=== PATIENT | male | born 1965 | race American Indian/Alaskan Native ===

== ENCOUNTER 2017-01-28 09:05 | Day surgery (SDC) | payer OTHER ==
[~2017-01-28 09:05] MED LIST: ADRENALIN ONE; ANCEF/STERILE WATER 2 GM/20 ML IV NR; MARCAINE 0.25% INFILTRATI ONE; XYLOCAINE 1% 20 mL ONE
--- NOTE | 2017-01-28 11:22 | Anesthesia Day of Surgery ---
Anesthesia Day of Surgery - Day of Surgery Patient Examined: Yes Patient H&P Reviewed: Yes Patient is NPO: Yes
--- NOTE | 2017-01-28 11:22 | Anesthesia Consultation ---
Anesthesia Consult and Med Hx Date of service: 01/28/17 - Airway Anesthetic Teeth Evaluation: Good ROM Head & Neck: Adequate Mental/Hyoid Distance: Adequate Mallampati Class: Class II Intubation Access Assessment: Good - Pulmonary Exam CTA: Yes - Cardiac Exam Cardiac Exam: No Murmur - Pre-Operative Health Status ASA Pre-Surgery Classification: ASA2 Proposed Anesthetic Plan: General - Pulmonary Hx Smoking: No Hx Sleep Apnea: No (KEY PRE SCREEN HIGH RISK) - Cardiovascular System Hx Hypertension: Yes (X 1 YR) - Central Nervous System Hx Back Pain: Yes (NECK AND BACK PAIN) - Other Systems Hx Cancer: No
[2017-01-28] MEDS ORDERED: MARCAINE 0.25% INFILTRATI ONE (11:55)
[2017-01-28] MEDS ORDERED: XYLOCAINE 1% 20 mL INFILTRATI ONE (11:55)
[2017-01-28] MEDS ORDERED: VERSED IV NR (12:00)
[2017-01-28] MEDS ORDERED: PEPCID PO NR (12:00)
[2017-01-28] MEDS ORDERED: LACTATED RINGERS 1,000 ML IV SCH (12:00)
[2017-01-28] MEDS ORDERED: ADRENALIN IV ONE (12:11)
[2017-01-28] MEDS ORDERED: DECADRON ONE (12:36)
[2017-01-28] MEDS ORDERED: ZOFRAN ONE (12:36)
--- NOTE | 2017-01-28 12:37 | Short Stay Summary ---
Short Stay Documentation Date of service: 01/28/17 - History H&P: obtained from office - Allergies and Medications Current Medications: Allergies No Known Allergies Allergy (Verified 09/20/14 17:14) Home Medications Medication Instructions Recorded Confirmed Last Taken Type Gabapentin [Neurontin] 300 mg PO Q8HR 09/20/14 01/28/17 01/26/17 History Hydrochlorothiazide [HCTZ] 25 mg PO QDAY 09/20/14 01/28/17 01/28/17 07:00 History QUEtiapine [SEROquel] 25 mg PO BID 09/20/14 01/28/17 01/26/17 History Sertraline [Zoloft] 25 mg PO QDAY 09/20/14 01/28/17 01/26/17 History clonazePAM [KlonoPIN] 1 mg PO BID PRN 09/20/14 01/28/17 01/28/17 07:00 History AtorvaSTATin [Lipitor] 20 mg PO QHS 01/18/17 01/28/17 01/26/17 History Ibuprofen [Motrin] 800 mg PO Q8HR PRN 01/18/17 01/28/17 01/18/17 History Active Medications Famotidine (Pepcid) 20 mg PO PREOP NR Stop: 01/28/17 23:00 Last Admin: 01/28/17 11:42 Dose: 20 mg Lactated Ringer's (Lactated Ringers) 1,000 mls @ 100 mls/hr IV DIRECT JOSE Last Admin: 01/28/17 11:42 Dose: 100 mls/hr Midazolam HCl (Versed) 2 mg IV PREOP NR Stop: 01/28/17 23:59 Last Admin: 01/28/17 11:44 Dose: 2 mg - Brief post op/procedure progress note Date of procedure: 01/28/17 Pre-op diagnosis: persistetn right knee pain with mechanical symptoms lateral meniscus tear Post-op diagnosis: same Procedure: right knee arthroscopy partial lateral meniscectomy Anesthesia: GETA Findings: as above Surgeon: KIERAN GILBERT Manager Clinical: MENDEL OSHEA III Estimated blood loss: minimal Pathology: none Condition: stable - Hospital course Hospital course: no perioperative complications - Disposition Condition at discharge: Good Disposition: DC-01 TO HOME OR SELFCARE Short Stay Discharge Plan Follow up with: RHEA CARNEY MD [Primary Care Provider] - 7 Days
[2017-01-28] MEDS ORDERED: SUBLIMAZE ONE (12:40)
[2017-01-28] MEDS ORDERED: XYLOCAINE MPF 2% ONE (12:40)
[2017-01-28] MEDS ORDERED: DIPRIVAN 10 MG/ML IV ONE (12:40)
[2017-01-28] MEDS: DILAUDID IV PRN ×2 (13:00→13:10)
[2017-01-28] MEDS ORDERED: DILAUDID ONE (13:12)
[2017-01-28] MEDS ORDERED: PERCOCET 5/325 PO ONE (14:00)
[2017-01-28 14:01] VITALS: BP 132/91
--- NOTE | 2017-01-28 16:53 | Operative Report ---
PREOPERATIVE DIAGNOSIS: Persistent right knee pain, lateral meniscus tear repair. POSTOPERATIVE DIAGNOSIS: Persistent right knee pain, mechanical symptoms, large complex tear located within the posterior horn of the lateral meniscus. OPERATIVE PROCEDURE: Right knee arthroscopy, partial lateral meniscectomy. SURGEON: Tam Ragland M.D. MOLD FILLER AND DRAINER: Hesham Altamirano M.D. ANTIBIOTICS: Ancef 2 g IV within 1 hour of skin incision. DEEP VENOUS THROMBOSIS PROPHYLAXIS: Open toe thigh high compression stockings and SCD pumps to the nonoperative left lower extremity. OPERATIVE COMPLICATIONS: None. INDICATIONS: A 51-year-old male who has had persistent progressive worsening right knee pain with mechanical symptoms that is markedly limiting his day-to-day activities. MRI scan was performed, which was positive for a lateral meniscus tear. The patient's MRI findings and diagnosis were discussed at length. After making sure, the patient understood the diagnosis and all questions answered, we then discussed treatment alternatives of surgical and nonsurgical including the risks and benefits of both. After a long lengthy discussion, the patient opted to proceed with operative intervention. This will entail a right knee arthroscopy, partial lateral meniscectomy and surgery as indicated. The risks of which were discussed to include but not exclusive of infection, blood loss, nerve damage, loss of range of motion, persistent pain. Again, the patient understood and all of his questions answered. He wished to proceed with operative intervention. DESCRIPTION OF PROCEDURE: The patient was seen in the preoperative holding area at which point informed consent was reviewed and appropriate right lower extremity was identified and then marked. The patient was then brought back to the operating room and placed supine on the standard operating room table at which point, general anesthesia was administered and an LMA tube was inserted. After confirmation of adequate general anesthesia and checking appropriate placement of the LMA tube, we then made sure that all bony prominences were well padded that there were no wrinkles in the compression stockings on the left lower extremity and SCD pumps were applied to the left lower extremity. The arms were secured in a neutral position on the patient's side with the aid of the arm boards. The head was secured in a nice neutral position as well. The right lower extremity was then examined under anesthesia. The patient was seen to have full range of motion. There was no evidence of instability with a negative Zhao, negative anterior drawer, negative posterior drawer. No varus or valgus instability at 0 as well as 30 degrees of flexion. Following examination under anesthesia, the right lower extremity was then prepped and draped in the usual sterile fashion. After prepping and draping, a time-out was called and appropriate right lower extremity was identified, which again had been marked in the preoperative holding room area. We began our procedure by first infiltrating the knee with 30 mL of 0.25% bupivacaine without epinephrine as well as 30 mL of 1% lidocaine without epinephrine, which the patient tolerated well. There were no complications. We then began the procedure by first making a standard anterolateral portal with a 15 blade. Once the portal was established, the cannula with the blunt trocar was inserted into the intra-articular aspect of the knee joint. This went without difficulty or damage to articular cartilage. The arthroscopic camera was needed to be placed in the medial compartment. We established anterior medial portal by first inserting an 18 gauge spinal needle under direct arthroscopic visualization. Once confirmed to be in appropriate position and superior to the medial meniscus, a 15 blade was then used to establish an anteromedial portal. Once the portal was established, a blunt trocar was inserted to widen the portal site for an arthroscopic probe. We began diagnostic arthroscopy in the medial compartment. The patient seemed to have grade 1 articular cartilage, loss in the medial femoral condyle and medial tibial plateau. There were no tears in the anterior or posterior horn of the medial meniscus. Inspection of the notch showed the ACL and PCL to be intact and stable when probed. Inspection of the lateral compartment showed to be a large complex tear located in the posterior horn of the lateral meniscus involving the white-white as well as a white-red zone. This is irreparable. We performed a partial lateral meniscectomy in standard fashion using series of basket punches and a 4.0 meniscal shaver down to a nice smooth, stable healthy remaining border, all in all removing the white-white as well as white-red zones. There were no tears in the anterior horn of the lateral meniscus. There was grade 2 articular cartilage loss of lateral femoral condyle and lateral tibial plateau. Inspection of the medial and lateral gutters showed these to be free and clear of all loose bodies. Inspection of suprapatellar pouch noted to be just free and clear of all loose bodies. Inspection of patellofemoral joint showed to be normal patellofemoral tracking with grade 1/2 articular cartilage as well as central aspect of the patella and trochlea. Arthroscopic pump was then turned off. There was good hemostasis. Once this was confirmed, the transport was suctioned from the knee using arthroscopic cannula. Following this, all the arthroscopic instrumentation was removed. The 2 portal sites were closed with 3-0 nylon in simple fashion. Adaptic, 4 x 4, ABD open toe with thigh high compression stocking was applied. The patient was then awakened from general anesthesia without complications and sent to recovery room in stable condition and standard postoperative orders were written. Thank you very much. JOB# [id number] VS/NTS
== END 2017-01-28 14:45 | disposition home or self-care (01) ==
LOC: OR 09:05
PROVIDERS: ATTEND Orthopaedic Surgery
DX: S83.271A Complex tear of lateral meniscus, current injury, right knee, initial encounter (principal); X58.XXXA Exposure to other specified factors, initial encounter; Y93.89 Activity, other specified; Y92.89 Other specified places as the place of occurrence of the external cause; Y99.8 Other external cause status
CPT/HCPCS: 29881; 97161; J0171; J0690; J1100; J1170; J2250; J2405; J2704; J3010; J7120